=== PATIENT | male | born 1960 | race Caucasian/White ===

== ENCOUNTER 2020-08-14 01:01 | Inpatient (IN) | payer OTHER ==
--- OUTSIDE RECORDS SUMMARY | 2020-08-14 01:05 | XMS REPORT | Continuity of Care Document ---
:1960 Author Organization [facility] t Address [address] [place] [address] Care Team Providers Name Role Phone Doctor Unassigned, Name Attending Clinician Unavailable Craig RN Attending Clinician Problems This patient has no known problems. Allergies, Adverse Reactions, Alerts This patient has no known allergies or adverse reactions. Medications This patient has no known medications. Procedures This patient has no known procedures. Encounters Start End Encounter Admission Attending Care Care Encounter Source Date/Time Date/Time Type Type Clinicians Facility Department ID 2019-07-17 2019-07-17 Orders Doctor REYNOSO [id number] 00:00:00 00:00:00 Only UnassignedKAMAR [id number] [place] [facility] [id number] 2019-07-06 2019-07-06 Transition Berta Srinivasan [id number] 00:00:00 00:00:00 of Care Shivani Gonzalez [id number] [place] [id number] Results This patient has no known results.
[2020-08-14 02:13] VITALS: BMI 36.0
[2020-08-14] MEDS ORDERED: NITROGLYCERIN 0.4 MG/TAB SL PRN (02:26)
[2020-08-14] MEDS ORDERED: ACETAMINOPHEN 500 MG TAB PO PRN (02:26)
[2020-08-14] MEDS ORDERED: ALBUTEROL INHALER 60 PUFF/8 GM IH PRN (02:26)
[2020-08-14] MEDS ORDERED: ONDANSETRON 4 MG/2 ML VIAL IV PRN (02:26)
--- NOTE | 2020-08-14 02:38 | P.HP ---
Certification for Inpatient Patient admitted to: Inpatient With expected LOS: >2 Midnights Patient will require the following post-hospital care: None Practitioner: I am a practitioner with admitting privileges, knowledge of patient current condition, hospital course, and medical plan of care. Services: Services provided to patient in accordance with Admission requirements found in Title 42 Section 412.3 of the Code of Federal Regulations <Grayson Wang - Last Filed: 08/14/20 02:33> Patient History Date of Service: 08/14/20 Primary Care Provider: Dr. Lowery Reason for admission: NSTEMI History of Present Illness: 60-year-old male with history of CHF, COPD, hypertension, hyperlipidemia, CAD with stent placement, gout was at home resting in bed when he began having significant chest pain radiating to his left arm accompanied by rapid heart rate and shortness of breath. Patient reports that shortness of breath had been ongoing throughout the course the day prior to his episode of chest pain and palpitations. Patient usually takes nitro at home as needed for angina but was in such distress he is unable to get his bottle of nitro open and then called EMS. Upon arrival EMS stated that patient's heart rate was around 180, they gave him 25 mg of Cardizem IV. Patient was transferred to [facility] emergency department for evaluation, upon arrival to [facility] patient was in sinus rhythm with a rate of around 70. Patient's chest pain resolved, patient was then evaluated in the emergency department and found to have elevated troponin at 0.172, elevated BNP at 4177. Creatinine mildly elevated at 1.85, GFR 40, BUN 31. D-dimer also mildly elevated at 773.6. The patient's el evated troponin level and recent history of chest pain with shortness of breath he was started on a heparin drip and transferred to our facility for further evaluation and management. When I saw the patient in the treatment room he was awake, alert, oriented x3. Patient reports that he is no longer having chest pain at this time. Patient's last echocardiogram at our facility in 2017 showed ejection fraction between 40 and 45%. Patient reports that in September of last year. He was in [place] and had a myocardial infarction, at that time he had an echocardiogram, stress test, heart catheterization with stent placement but he does not have any of those results. Patient will be admitted for further evaluation and management. - Past Medical/Surgical History Has patient received pneumonia vaccine in the past: No Diabetic: No -: Heart failure reduced ejection fraction -: gout -: Coronary artery disease status post stent -: Pneumonia -: Chronic kidney disease -: arrythmia? -: Cardiac catheterization with stent placement Psychosocial/ Personal History: Patient lives at home with his friend and is unemployed on disability - Family History Father -: Heart disease - Social History Smoking Status: Never smoker Alcohol use: No CD- Drugs: No Caffeine use: Yes Place of Residence: Home <Grayson Wang - Last Filed: 08/14/20 02:33> Date of Service: 08/14/20 <Robinson Duran - Last Filed: 08/14/20 11:19> Allergies No Known Allergies Allergy (Verified 08/14/20 02:12) Home Medications: Allopurinol 100 mg PO DAILY 08/14/20 Amlodipine [Norvasc*] 10 mg PO DAILY 08/14/20 Aspirin Chewable [Aspirin Chewable*] 81 mg PO DAILY 08/14/20 Atorvastatin Calcium [Lipitor] 40 mg PO BEDTIME 08/14/20 Clopidogrel Bisulfate [Plavix*] 75 mg PO DAILY 08/14/20 Lisinopril [Zestril] 20 mg PO DAILY 08/14/20 Metoprolol Tartrate [Lopressor] 100 mg PO DAILY 08/14/20 Nitroglycerin [Nitrostat*] 0.4 mg SL PRN 08/14/20 Review of Systems 10-point ROS is otherwise unremarkable Respiratory: Shortness of Breath Cardiovascular: Chest Pain, Palpitations <Grayson Wang - Last Filed: 08/14/20 02:33> Physical Examination - Vital Signs Temperature: 98.1 F Blood Pressure: 190/92 Pulse: 62 Respirations: 18 Pulse Ox (%): 96 - Physical Exam General: Alert, In no apparent distress HEENT: Atraumatic, PERRLA, Mucous membr. moist/pink Neck: Supple, 2+ carotid pulse no bruit, No LAD Respiratory: Clear to auscultation bilaterally, Normal air movement Cardiovascular: Regular rate/rhythm, Normal S1 S2 Gastrointestinal: Normal bowel sounds, No tenderness Musculoskeletal: No tenderness Integumentary: No rashes Neurological: Normal speech, Normal strength at 5/5 x4 extr, Normal tone, Normal affect <Grayson Wang - Last Filed: 08/14/20 02:33> - Studies Laboratory Data (last 24 hrs) 08/14/20 07:47: APTT 43.5 H 08/14/20 07:47: Troponin I 0.47 H 08/14/20 03:11: PT 11.9, INR 1.01, APTT 71.6 H 08/14/20 03:11: Sodium 142, Potassium 4.3, BUN 30 H, Creatinine 1.77 H, Glucose 109 H, Magnesium 1.6 L, Troponin I 0.53 H*, Triglycerides 192 H, Cholesterol 143, HDL Cholesterol 36 L, Cholesterol/HDL Ratio 3.97 08/14/20 03:11: WBC 9.3, Hgb 12.4 L, Hct 37.1 L, Plt Count 163 08/14/20 02:44: PT Cancelled, INR Cancelled 08/14/20 02:30: Troponin I Cancelled <Robinson Duran - Last Filed: 08/14/20 11:19> Assessment and Plan - Plan Assessment NSTEMI, history of CAD S/P multiple stents Chronic heart failure reduced ejection fraction Hypertension Hyperlipidemia Gout Plan NSTEMI, history of CAD S/P multiple stents: Continue with heparin drip initiated at transferring facility. Cardiology consult in place. Monitor on telemetry. Trend troponins. NPO at this time for possible inpatient intervention. Appreciate further input from cardiology. Chronic heart failure reduced ejection fraction: Last echocardiogram in 2017 showed ejection fraction of 40-45%. Have ordered echocardiogram for this admission. Obtain and continue home medications. Hypertension: Home medications have been continued. Hyperlipidemia: Home medications have been continued. Will obtain lipid panel with morning labs. Gout: Home medications have been continued. Discharge Plan: Home Plan to discharge in: 24 Hours - Advance Directives Does patient have a Living Will: No Does patient have a Durable POA for Healthcare: No - Code Status/Comfort Care Code Status Assessed: Yes (Patient is full code) Critical Care: No Time Spent Managing Pts Care (In Minutes): 55 <Grayson Wang - Last Filed: 08/14/20 02:33> Physician Review Additional Text: Plan of care discussed with Grayson Wang, and I agree with the management plan as noted above. In addition, patient continues with some shortness of breath this morning on 3 L nasal cannula. Briefly discussed with Cardiology and will treat with IV Lasix 40 mg daily He is to go for cardiac catheterization this morning <Robinson Duran - Last Filed: 08/14/20 11:19>
[2020-08-14] MEDS ORDERED: HEPARIN/D5W 25,000 UNIT/500 ML BAG IV SCH (03:00)
[2020-08-14] MEDS ORDERED: METOPROLOL TARTRATE 5 MG/5 ML INJ IV STA ×2 (03:18→19:45)
[2020-08-14 03:33] LABS: Absolute Lymphocytes (CBC) 1.6 K/uL (0.7-4.9); Basophils % 0.6 % (0-1.3); Hematocrit 37.1 % (39.6-49.0); Lymphocytes % 16.7 % (15.3-44.8); MPV 9.8 fL (7.6-11.3)
[2020-08-14 03:40] LABS: Urine Appearance CLEAR; Urine Bilirubin NEGATIVE (NEG); Urine Blood NEGATIVE (NEG); Urine Color YELLOW; Urine Glucose NEGATIVE (NEG); Urine Protein 2+ (NEG); Urine Specific Gravity 1.015 (1.005-1.030); Urine Urobilinogen 0.2 mg/dL (0.2-1.0); Urine pH 5.5 (5.0-7.0)
[2020-08-14 03:42] LABS: Urine Microscopic Reflex ORDER UMIC
[2020-08-14 03:43] LABS: Protime INR 1.01
[2020-08-14] MEDS: MORPHINE 2 MG/ML SYR IV PRN ×2 (04:02→19:38)
[2020-08-14 04:06] LABS: Magnesium 1.6 mg/dL (1.8-2.4); Potassium 4.3 mmol/L (3.5-5.1); Thyroid Stimulating Hormone 2.18 uIU/mL (0.360-3.740)
[2020-08-14 04:07] LABS: Troponin I 0.53 ng/mL (0.0-0.045)
[2020-08-14 04:24] LABS: Urine Bacteria <20 /HPF (NONE SEEN); Urine Culture Reflex Order NOT NEEDED; Urine RBC NONE SEEN /HPF (NONE SEEN); Urine Urothelial Cells <5 /HPF (NONE SEEN)
[2020-08-14] MEDS ORDERED: HYDRALAZINE HCL 20 MG/ML VIAL IV PRN (05:07)
[2020-08-14] MEDS ORDERED: MAGNESIUM SULFATE 1 gm IVPB 1 GM/100 ML BAG IV ONE (08:00)
[2020-08-14] MEDS: lisinopriL 20 MG TAB PO SCH (08:11)
[2020-08-14] MEDS: ASPIRIN EC 81 MG TAB PO SCH (08:11)
[2020-08-14] MEDS: allopurinoL 100 MG TAB PO SCH (08:11)
[2020-08-14] MEDS: AMLODIPINE 10 MG TAB PO SCH (08:11)
[2020-08-14] MEDS: CLOPIDOGREL 75 MG TABLET PO SCH (08:48)
[2020-08-14] MEDS: FUROSEMIDE 40 MG/4 ML VIAL IV SCH (08:48)
[2020-08-14] MEDS ORDERED: INFLUENZA VACCINE (for 3y+) 0.5 ML DOSE IMVAC ONE (09:00)
[2020-08-14] MEDS ORDERED: ACETYLCYST 20% 800 MG/4 ML VIAL PO ONE (09:25)
[2020-08-14] MEDS ORDERED: NA CHLORIDE 0.9% 500 ML ONE (12:33)
[2020-08-14] MEDS ORDERED: HEPA 1000U/500MLS 2,000 UNIT/1,000 ML BAG IV ONE (13:02)
[2020-08-14] MEDS ORDERED: FENTANYL CITR 100 MCG/2 ML ONE ×2 (13:20→14:47)
[2020-08-14] MEDS ORDERED: LIDOCAINE 1% 20 ML MDV ONE (13:20)
[2020-08-14] MEDS ORDERED: ATROPINE SULF 1 MG/10 ML SYR IV ONE (13:20)
[2020-08-14] MEDS ORDERED: MIDAZOLAM HCL 2 MG/2 ML INJ ONE (13:20)
[2020-08-14] MEDS ORDERED: HEPARIN 10,000 UNIT/10 ML VIAL IV ONE (14:13)
[2020-08-14] MEDS ORDERED: NALOXONE 0.4 MG/ML VIAL ONE (14:21)
[2020-08-14] MEDS ORDERED: FLUMAZENIL 0.1 MG/ML (5 mL VIAL) IV ONE (14:21)
[2020-08-14] MEDS ORDERED: HEPA 1000U/500MLS 1,000 UNIT/500 ML BAG IV ONE (14:26)
[2020-08-14] MEDS ORDERED: HEPARIN 5000 UNIT/ML 1 ML VIAL ONE (14:31)
[2020-08-14] MEDS ORDERED: MORPHINE 4 MG/ML SYR ONE (14:39)
[2020-08-14] MEDS ORDERED: NITROGLYCERIN 0.4 MG/TAB SL ONE (14:41)
[2020-08-14] MEDS ORDERED: CLOPIDOGREL 75 MG TABLET ONE (15:00)
[2020-08-14] MEDS ORDERED: NA CHLORIDE 0.9% 1,000 ML IV SCH (18:00)
[2020-08-14] MEDS ORDERED: ADENOSINE 6 MG/ 2ML VIAL IV ONE ×2 (19:45→20:02)
[2020-08-14] MEDS ORDERED: METOPROLOL TARTRATE 5 MG/5 ML INJ IV ONE ×3 (20:00→23:45)
[2020-08-14] MEDS ORDERED: NA CHLORIDE 0.9% 250 ML ONE (20:01)
[2020-08-14] MEDS: ATORVASTATIN 40 MG TAB PO SCH (21:21)
[2020-08-14] MEDS ORDERED: ATORVASTATIN 20 MG TAB ONE (21:22)
[2020-08-14] MEDS: METOPROLOL TARTRATE 5 MG/5 ML INJ IV PRN ×3 (23:24→23:38)
[2020-08-14] MEDS ORDERED: MORPHINE 2 MG/ML SYR IV ONE (23:28)
[2020-08-14] MEDS ORDERED: MORPHINE 2 MG/ML SYR ONE (23:38)
[2020-08-14] MEDS ORDERED: ONDANSETRON 4 MG/2 ML VIAL ONE (23:42)
[2020-08-14] MEDS ORDERED: METOPROLOL TAR 50 MG TAB PO SCH (23:50)
[2020-08-15] MEDS ORDERED: METOPROLOL TAR 50 MG TAB ONE ×3 (00:04→20:36)
[2020-08-15] MEDS ORDERED: AMIODARONE HCL 150 MG in D5W 100 ML IV STA (00:51)
[2020-08-15] MEDS ORDERED: HYDRALAZINE HCL 20 MG/ML VIAL ONE (01:00)
[2020-08-15] MEDS ORDERED: AMIODARONE HCL 900 MG in Dextrose 5%-Water 482 ML IV SCH (01:00)
[2020-08-15] MEDS ORDERED: AMIODARONE HCL 150 MG/3 ML INJ IV ONE ×3 (01:10→01:38)
[2020-08-15] MEDS ORDERED: NA CHLORIDE 0.9% 0 ML IV ONE (01:10)
[2020-08-15] MEDS ORDERED: D5W 100 ML IV ONE (01:12)
--- NOTE | 2020-08-15 02:19 | P.PN ---
Date of Service: 08/15/20 Rapid response was called this evening, patient was tachycardic with a rate around 170, hypertensive with blood pressure of around 220/110. Rhythm was narrow complex and regular, patient was complaining of chest pain at the time. Called cardiology recommended 12 of adenosine IV. Patient was given adenosine and converted to normal sinus rhythm with a rate around the ED. Patient was admitted to the intensive care unit for monitoring throughout the night. Patient is reported to have had stenting of the LAD during the day shift. Later in the evening I was called again, patient's heart rate was around 130-135, blood pressure was again elevated and he is experiencing chest pain. Obtained EKG which showed what appeared to be 2-1 atrial flutter. Patient was given metoprolol 5 mg IV x3 which did not control the rate or the blood pressure. Called cardiology again who recommended amiodarone loading dose followed by continuous infusion. Amiodarone was initiated, patient soon after converted to sinus rhythm again with a rate of around 70, blood pressure normalized. Will continue to monitor patient throughout the evening.
[2020-08-15] MEDS ORDERED: NACHLORIDE 0.45% 1,000 ML IV ONE (02:42)
[2020-08-15 04:18] LABS: Absolute Lymphocytes (CBC) 1.1 K/uL (0.7-4.9); Basophils % 0.7 % (0-1.3); Hematocrit 37.3 % (39.6-49.0); Lymphocytes % 9.6 % (15.3-44.8); MPV 10.3 fL (7.6-11.3); RBC Red Blood Cell Count 4.07 M/uL (4.33-5.43)
[2020-08-15 04:33] LABS: Albumin 3.3 g/dL (3.4-5.0); Bilirubin Total 0.4 mg/dL (0.2-1.0); Magnesium 1.8 mg/dL (1.8-2.4); Potassium 4.3 mmol/L (3.5-5.1)
[2020-08-15] MEDS ORDERED: MAGNESIUM SULFATE 1 gm IVPB 1 GM/100 ML BAG IV ONE ×2 (05:35→06:00)
[2020-08-15] MEDS ORDERED: AMLODIPINE 10 MG TAB ONE (08:31)
[2020-08-15] MEDS ORDERED: CLOPIDOGREL 75 MG TABLET ONE (08:31)
[2020-08-15] MEDS ORDERED: ASPIRIN EC 81 MG TAB PO ONE (08:31)
[2020-08-15] MEDS ORDERED: FUROSEMIDE 40 MG/4 ML VIAL ONE (08:32)
[2020-08-15] MEDS ORDERED: lisinopriL 20 MG TAB ONE (08:32)
[2020-08-15] MEDS: CLOPIDOGREL 75 MG TABLET PO SCH (08:47)
[2020-08-15] MEDS: ASPIRIN EC 81 MG TAB PO SCH (08:47)
[2020-08-15] MEDS: AMLODIPINE 10 MG TAB PO SCH (08:47)
[2020-08-15] MEDS: allopurinoL 100 MG TAB PO SCH (08:47)
[2020-08-15] MEDS: METOPROLOL TAR 50 MG TAB PO SCH ×2 (08:48→21:00)
[2020-08-15] MEDS: lisinopriL 20 MG TAB PO SCH (08:48)
[2020-08-15] MEDS: FUROSEMIDE 40 MG/4 ML VIAL IV SCH (08:49)
--- NOTE | 2020-08-15 10:39 | ECHO ---
HEIGHT: 5 ft 9 in WEIGHT: 243 lb 12.8 oz DATE OF STUDY: 08/14/[address]: Grayson Wang NP 2-DIMENSIONAL: YES M.MODE: YES DOPPLER: YES COLOR FLOW: YES TDS: YES PORTABLE: NO DEFINITY: NO BUBBLE STUDY: NO DIAGNOSIS: NSTEMI CARDIAC HISTORY: CATHERIZATION: YES SURGERY: NO PROSTHETIC VALVE: NO PACEMAKER: NO MEASUREMENTS (cm) DIASTOLIC (NORMALS) SYSTOLIC (NORMALS) IVSd 1.2 (0.6-1.2) LA Diam 4.3 (1.9-4.0) LVEF 58% LVIDd 5.0 (3.5-5.7) LVIDs 3.5 (2.0-3.5) %FS 30% LVPWd 1.3 (0.6-1.2) Ao Diam 3.2 (2.0-3.7) 2 DIMENSIONAL ASSESSMENT: RIGHT ATRIUM: NORMAL LEFT ATRIUM: ENLARGED RIGHT VENTRICLE: NORMAL LEFT VENTRICLE: NORMAL TRICUSPID VALVE: NORMAL MITRAL VALVE: NORMAL PULMONIC VALVE: NORMAL AORTIC VALVE: NORMAL PERICARDIAL EFFUSION: NONE AORTIC ROOT: NORMAL LEFT VENTRICULAR WALL MOTION: NORMAL DOPPLER/COLOR FLOW: NORMAL COMMENTS: NORMAL LEFT VENTRICULAR EJECTION FRACTION 55-60% WITH NORMAL WALL MOTION. GRADE I DIASTOLIC DYSFUNCTION. TECHNOLOGIST: Dominik ROWE
--- NOTE | 2020-08-15 12:10 | OP ---
Date of Procedure: 08/14/2020 Surgeon: LYUBOV ACUÑA Procedures Performed: 1.Selective coronary angiogram. 2.Coronary angioplasty of mid LAD, ISR, 95% stenosis using 4.0 x 50 mm NC balloon. 3.Balloon angioplasty of severe ostial D1 stenosis, 95% stenosis using 2.75 x 50 mm NC balloon and t hen performed bilateral kissing inflation through the D1 to LAD with the same balloons. Access: Right femoral artery 6-Irish closed with 6-Irish Angio-Seal. Indication: Non-ST elevation myocardial infarction. Description Of Procedure: After the risks, benefits, and alternatives were explained, the patient ag kirti to procedure and signed informed consent and then we used fentanyl and Versed in incremental dos es to achieve adequate amounts of moderate sedation. Then, we accessed the right femoral artery usin g ultrasound guidance and fluoroscopy and placed a 6-Irish Callao sheath. Subsequently, we took a 6-Irish JL4 catheter, engaged left main and then a 6-Irish JR4 catheter, engaged the right coronar y artery, took standard views and then proceeded to the intervention part. Intervention Details: We gave systemic heparin to assure ACT level above 250 and then we took an EBU 4 engaged left main and then took a short run-through wire across the LAD stenosis and Choice floppy wire into the diagonal branch and we took 4.0 x 50 mm NC balloon dilated the area of stenosis of the mid LAD stent and that closed off completely the diagonal branch. Then, we took a 2.75 balloon thro ugh the diagonal branch and opened it up and then did a bilateral kissing inflation for the diagonal LAD simultaneously and had good results. LEI-3 flow on both vessels. Findings: 1.Left main, 20% to 30% stenosis diffusely. 2.LAD, proximal and mid LAD, severe in-stent restenosis 95%, status post successful balloon angiopla sty as above. 3.Severe ostial D1 disease status post successful balloon angioplasty as above. 4.Left circumflex is moderate size with mild luminal irregularities. 5.RCA mid has 50%. Conclusions: Severe LAD/D1 disease status post bilateral balloon angioplasty with bilateral kissing inflation with LEI-3 flow. Recommendations: 1.Aggressive management of coronary artery disease medically with dual anti-platelet therapy and hig h-dose statin. 2.FFR to RCA proximal LAD at a later time. SR/MODL Voice ID: [id number] Report ID: [id number]
[2020-08-15] MEDS ORDERED: NA CHLORIDE 0.9% 1,000 ML ONE (12:14)
[2020-08-15] MEDS: NA CHLORIDE 0.9% 1,000 ML IV SCH (12:45)
[2020-08-15] MEDS: ACETYLCYST 20% 800 MG/4 ML VIAL PO SCH ×2 (12:45→21:00)
--- NOTE | 2020-08-15 13:02 | P.CNS ---
Date of Consult: 08/15/20 Reason for Consult: AJAY Chief Complaint: NSTEMI History of Present Illness: HPI A 60 Y/o man with PMhx of CKD III baseline Cr 1.7 from previous labs from 2017 ,CAD S/P PCI, CHF on lasix , COPD, hypertension on lisniopril , hyperlipidemia, pt presented with chest pain and palpitation in er Cr 1.7, pt had cardiac catheterization yesterday cr now 1.9 , pt was on lisinopril and lasix no NSAID exposure, pt dendied , nausea, vomiting, diarrhea or constipation Physical exam general: AAOX3, NAD Neck; Supple, No elevated JVD hear: RRR, normal S1,2 no murmur or rub Chest: CTAB, no rlaes or wheezes Abdomen: Soft , Nt Extremities No edema or ulcer A/p AJAY on CKD III possibly due to contrast associated nephropathy will order US will start iVF and dc lasix and lisinopril renal dose meds CAD S/P cardiac cath Arrythemia heart rate controlled now on AMidoarone CHF euvolmeic now will dc lasix HTN BP controlled now will hold lisinopril Allergies No Known Allergies Allergy (Verified 08/14/20 02:12) Home Medications: Allopurinol 100 mg PO DAILY 08/14/20 Amlodipine [Norvasc*] 10 mg PO DAILY 08/14/20 Aspirin Chewable [Aspirin Chewable*] 81 mg PO DAILY 08/14/20 Atorvastatin Calcium [Lipitor] 40 mg PO BEDTIME 08/14/20 Clopidogrel Bisulfate [Plavix*] 75 mg PO DAILY 08/14/20 Lisinopril [Zestril] 20 mg PO DAILY 08/14/20 Metoprolol Tartrate [Lopressor] 100 mg PO DAILY 08/14/20 Nitroglycerin [Nitrostat*] 0.4 mg SL PRN 08/14/20 - Past Medical/Surgical History Diabetic: No -: Heart failure reduced ejection fraction -: gout -: Coronary artery disease status post stent -: Pneumonia -: Chronic kidney disease -: arrythmia? -: Cardiac catheterization with stent placement Psychosocial/ Personal History: Patient lives at home with his friend and is unemployed on disability - Family History Father Medical History: Heart disease - Social History Smoking Status: Unknown if ever smoked Alcohol use: No CD- Drugs: No Caffeine use: Yes Place of Residence: Home Physical Examination Temp Pulse Resp BP Pulse Ox 98.2 F 78 20 135/77 95 08/15/20 08:00 08/15/20 09:00 08/15/20 09:00 08/15/20 09:00 08/15/20 09:00 Laboratory Data (last 24 hrs) 08/15/20 03:46: Sodium 141, Potassium 4.3, BUN 29 H, Creatinine 1.94 H, Glucose 135 H, Magnesium 1.8, Total Bilirubin 0.4, AST 59 H, ALT 27, Alkaline Phosphatase 117 08/15/20 03:46: WBC 11.7 H D, Hgb 12.5 L, Hct 37.3 L, Plt Count 194 08/14/20 15:59: Troponin I 0.29 H
--- NOTE | 2020-08-15 18:48 | P.PN ---
Subjective Date of Service: 08/15/20 Primary Care Provider: Dr. Lowery Chief Complaint: NSTEMI Subjective: Other (Overnight with SVT and 2:1 Aflutter, required adenosine and then started on amiodarone drip, respectively Patient feeling much better this morning, was able to get rest, breathing more comfortably) Physical Examination - Vital Signs Temperature: 98.2 F Blood Pressure: 144/103 Pulse: 70 Respirations: 20 Pulse Ox (%): 100 - Physical Exam General: Alert, In no apparent distress, Oriented x3 Neck: JVD not distended Respiratory: Clear to auscultation bilaterally Cardiovascular: Regular rate/rhythm Gastrointestinal: Soft and benign, Non-distended, No tenderness Musculoskeletal: No erythema, No tenderness Integumentary: No rashes Neurological: Normal speech, Normal affect - Studies Laboratory Data (last 24 hrs) 08/15/20 03:46: Sodium 141, Potassium 4.3, BUN 29 H, Creatinine 1.94 H, Glucose 135 H, Magnesium 1.8, Total Bilirubin 0.4, AST 59 H, ALT 27, Alkaline Phosphatase 117 08/15/20 03:46: WBC 11.7 H D, Hgb 12.5 L, Hct 37.3 L, Plt Count 194 Assessment & Plan Physician Review Additional Text: NSTEMI, history of CAD S/P multiple stents: SVT, A flutter Status post cardiac catheterization, required stenting Continue amiodarone drip Cardiology consulted, appreciate assistance Continue monitoring on telemetry Continue aspirin and Plavix AJAY on CKD 3 -worsened overnight, likely due to contrast associated nephropathy -patient reports not having a nephrology is, will consult nephrology -Dc nephrotoxic medications Chronic heart failure reduced ejection fraction: Last echocardiogram in 2017 showed ejection fraction of 40-45%. Have ordered echocardiogram for this admission. Obtain and continue home medications. Hypertension: Home medications have been continued. Hyperlipidemia: Home medications have been continued. Gout: Home medications have been continued. Dispo: anticipate dc home in 24-48hrs Time Spent Managing Pts Care (In Minutes): 35
[2020-08-15] MEDS ORDERED: ENOXAPARIN 40 MG/0.4 ML SQ SCH (19:00)
[2020-08-15] MEDS ORDERED: ENOXAPARIN 40 MG/0.4 ML SQ ONE (19:48)
[2020-08-15 20:11] LABS: Urine Appearance CLEAR; Urine Bilirubin NEGATIVE (NEG); Urine Blood NEGATIVE (NEG); Urine Color YELLOW; Urine Glucose TRACE (NEG); Urine Protein 2+ (NEG); Urine Urobilinogen 0.2 mg/dL (0.2-1.0); Urine pH 5.5 (5.0-7.0)
[2020-08-15 20:12] LABS: Urine Microscopic Reflex ORDER UMIC
[2020-08-15 20:19] LABS: Urine Bacteria NONE SEEN /HPF (NONE SEEN); Urine Culture Reflex Order NOT NEEDED; Urine RBC <5 /HPF (NONE SEEN)
[2020-08-15] MEDS ORDERED: ATORVASTATIN 20 MG TAB ONE ×2 (20:36→21:44)
[2020-08-15] MEDS ORDERED: ACETYLCYST 6,000 MG/30 ML VIAL ONE (20:37)
[2020-08-15 20:38] LABS: Urine Protein/Creatinine Ratio 2.58 ratio (<0.15)
[2020-08-15] MEDS: ATORVASTATIN 40 MG TAB PO SCH (21:00)
[2020-08-16] MEDS: NA CHLORIDE 0.9% 1,000 ML IV SCH (01:22)
[2020-08-16] MEDS ORDERED: NA CHLORIDE 0.9% 1,000 ML ONE (01:24)
[2020-08-16 04:20] LABS: Absolute Lymphocytes (CBC) 1.3 K/uL (0.7-4.9); Hematocrit 38.9 % (39.6-49.0); Lymphocytes % 10.9 % (15.3-44.8); MPV 10.5 fL (7.6-11.3); RBC Red Blood Cell Count 4.29 M/uL (4.33-5.43)
[2020-08-16 04:35] LABS: Potassium 3.9 mmol/L (3.5-5.1)
[2020-08-16] MEDS ORDERED: POTASSIUM CL SA 10 MEQ TAB PO ONE ×2 (08:00→09:00)
[2020-08-16 08:38] VITALS: O2SAT 98
--- NOTE | 2020-08-16 08:44 | RAD REPORT ---
EXAM DESCRIPTION: US - Renal Ultrasound-Complete - 08/16/2020 2:29 am CLINICAL HISTORY: AJAY COMPARISON: No comparisons FINDINGS: The right kidney measures 10.6 x 5.0 x 4.6 cm. The left kidney measures 12.0 x 5.2 x 4.1 cm. Renal cortical thickness and echogenicity are normal. No hydronephrosis or suspicious renal mass. Bladder is only partially filled limiting assessment. Lobulated mass at the bladder base is present. This could only be partially evaluated due to incomplete filling of the bladder. This is typically en larged prostate gland projecting into the bladder base. A bladder origin mass is possible as well. No bladder calculus in the lumen identifiable. IMPRESSION: No hydronephrosis or suspicious renal mass. Lobulated mass of the bladder base is present only partially assessed. This is typically prostate hyp ertrophy projecting into the bladder base. A prostate origin mass or bladder base mass cannot be excl uded given the limited visualization.
[2020-08-16] MEDS: ASPIRIN EC 81 MG TAB PO SCH (08:54)
[2020-08-16] MEDS: CLOPIDOGREL 75 MG TABLET PO SCH (08:55)
[2020-08-16] MEDS: METOPROLOL TAR 50 MG TAB PO SCH (08:55)
[2020-08-16] MEDS: AMLODIPINE 10 MG TAB PO SCH (08:55)
[2020-08-16] MEDS: FUROSEMIDE 40 MG/4 ML VIAL IV SCH ×2 (08:56→09:00)
[2020-08-16] MEDS ORDERED: CLOPIDOGREL 75 MG TABLET ONE (08:58)
[2020-08-16] MEDS ORDERED: METOPROLOL TAR 50 MG TAB ONE (08:58)
[2020-08-16] MEDS ORDERED: ASPIRIN EC 81 MG TAB PO ONE (08:59)
[2020-08-16] MEDS ORDERED: AMLODIPINE 10 MG TAB ONE (08:59)
[2020-08-16] MEDS ORDERED: AMIODARONE HCL 200 MG TAB ONE (08:59)
[2020-08-16] MEDS ORDERED: FUROSEMIDE 40 MG/4 ML VIAL ONE (09:00)
[2020-08-16] MEDS ORDERED: ACETYLCYST 6,000 MG/30 ML VIAL ONE (09:00)
[2020-08-16] MEDS ORDERED: AMIODARONE HCL 200 MG TAB PO SCH ×2 (09:00→21:00)
[2020-08-16 09:04] LABS: Magnesium 1.7 mg/dL (1.8-2.4)
[2020-08-16] MEDS: allopurinoL 100 MG TAB PO SCH (10:02)
[2020-08-16] MEDS: ACETYLCYST 20% 800 MG/4 ML VIAL PO SCH (10:03)
--- NOTE | 2020-08-16 12:52 | P.DS ---
Admission Date: 08/14/20 Discharge Date: 08/16/20 Primary Care Provider: Dr. Lowery Disposition: ROUTINE DISCHARGE Discharge Condition: GOOD Reason for Admission: NSTEMI Consultations: Cardiology - Dr. Vazquez Neprology - Dr. Bobby Procedures: TTE (08/14): normal LVEF: 55-60%, normal wall motion. Grade 1 diastolic dysfunction. enlarged LA Cardiac catheterization (08/14/20): Left main, 20-30% stenosis diffusely. LAD, proximal and mid LAD, severe InStent restenoses 95%: Status post successful balloon angioplasty Severe ostial D 1 disease status post successful balloon angioplasty Left circumflex is moderate size with mild luminal irregularities RCA mid has 50% (severe LAD-T1 disease status post bilateral balloon angioplasty with bilateral kissing inflation with LEI-3 flow.) Recommendations FFR to RCA proximal LAD at a later time Renal U/S (08/15): No hydronephrosis or suspicious renal mass. Lobulated mass of the bladder base is present only partially assessed. This is typically prostate hypertrophy projecting into the bladder base. A prostate origin mass or bladder base mass cannot be excluded given the limited visualization. Problem List NSTEMI, history of CAD S/P multiple stents SVT, A-flutter AJAY on CKD 3 Chronic HFpEF Hypertension Hyperlipidemia Gout Brief History of Present Illness: 60yo M; PMH: chronic D-CHF (HFpEF), COPD, HTN, HLD, CAD with stent placement, gout who presented to ED with chest pain radiating to left arm accompaned by rapid heart rate and SOB. In [facility] ED, found to have HR 180, troponin 0.172, BNP: 4177, Cr: 1.85. He was transferred to our hospital for further management. Hospital Course: On arrival here, patient's troponin was 0.53, found to have NSTEMI, taken to quality control lab technician and underwent ballon angioplasty/stenting. Overnight after cardiac cath, patient was in SVT and resolved with adenosine. A few hours later patient was noted to be in 2:1 aflutter, resolved after a few hours on amiodarone drip. He remained in normal sinus rhythm was reporting significant improvement in symptoms, but some mild FORD persisted. He was transitioned to PO amiodarone (200mg BID) and discharged home. He also had a mild AJAY after cardiac cath which was likely related to mild contrast induced nephropathy - improved with gently IVF hydration. A renal U/S was obtained with above results. Patient did not report any obstructive symptoms and "lobulated mass of bladder base" / possible prostate hypertrophy should be worked up further as an outpatient. His lisinopril was discontinued on discharge due to AJAY on CKD, can likely be restarted once he returns to baseline. Vital Signs/Physical Exam: Temp Pulse Resp BP Pulse Ox 98.5 F 84 15 171/100 H 95 08/16/20 06:00 08/16/20 08:55 08/16/20 06:00 08/16/20 08:55 08/16/20 06:00 General: Alert, In no apparent distress HEENT: Mucous membr. moist/pink Neck: JVD not distended, No LAD Respiratory: Clear to auscultation bilaterally, Normal air movement Cardiovascular: No edema, Regular rate/rhythm, Normal S1 S2 Gastrointestinal: Soft and benign, Non-distended, No tenderness Musculoskeletal: No tenderness Integumentary: No rashes Neurological: Normal speech, Normal affect Laboratory Data at Discharge: WBC 11.6 K/uL (4.3-10.9) H 08/16/20 03:38 Hgb 13.1 g/dL (13.6-17.9) L 08/16/20 03:38 Hct 38.9 % (39.6-49.0) L 08/16/20 03:38 Plt Count 194 K/uL (152-406) 08/16/20 03:38 PT 11.9 SECONDS (9.5-12.5) 08/14/20 03:11 INR 1.01 08/14/20 03:11 APTT 43.6 SECONDS (24.3-36.9) H 08/14/20 11:50 Sodium 140 mmol/L (136-145) 08/16/20 03:38 Potassium 3.9 mmol/L (3.5-5.1) 08/16/20 03:38 BUN 26 mg/dL (7-18) H 08/16/20 03:38 Creatinine 1.84 mg/dL (0.55-1.3) H 08/16/20 03:38 Glucose 136 mg/dL (74-106) H 08/16/20 03:38 Magnesium 1.7 mg/dL (1.8-2.4) L 08/16/20 03:38 Total Bilirubin 0.4 mg/dL (0.2-1.0) 08/15/20 03:46 AST 59 U/L (15-37) H 08/15/20 03:46 ALT 27 U/L (12-78) 08/15/20 03:46 Alkaline Phosphatase 117 U/L (45-117) 08/15/20 03:46 Troponin I 0.29 ng/mL (0.0-0.045) H 08/14/20 15:59 Triglycerides 192 mg/dL (<150) H 08/14/20 03:11 Cholesterol 143 mg/dL (<200) 08/14/20 03:11 HDL Cholesterol 36 mg/dL (40-60) L 08/14/20 03:11 Cholesterol/HDL Ratio 3.97 08/14/20 03:11 Home Medications: Allopurinol 100 mg PO DAILY 08/14/20 Amlodipine [Norvasc*] 10 mg PO DAILY 08/14/20 Aspirin Chewable [Aspirin Chewable*] 81 mg PO DAILY 08/14/20 Atorvastatin Calcium [Lipitor] 40 mg PO BEDTIME 08/14/20 Clopidogrel Bisulfate [Plavix*] 75 mg PO DAILY 08/14/20 Metoprolol Tartrate [Lopressor] 100 mg PO DAILY 08/14/20 Nitroglycerin [Nitrostat*] 0.4 mg SL PRN 08/14/20 Amiodarone HCl [Cordarone*] 200 mg PO BID 30 Days #60 tab 08/16/20 New Medications: Amiodarone HCl [Cordarone*] 200 mg PO BID 30 Days #60 tab Patient Discharge Instructions: Follow up with PCP within 3-5 days. Follow up with Cardiology in 2-3 weeks. Recommend taking less colchicine while on amiodarone Diet: AHA Activity: Ad missy Time spent managing pt's care (in minutes): 40
[2020-08-16 15:53] VITALS: TEMP 98.5
[2020-08-16 15:58] VITALS: BP 142/75
[2020-08-16] MEDS ORDERED: ENOXAPARIN 40 MG/0.4 ML SQ SCH (18:00)
--- NOTE | 2020-08-16 21:38 | PN ---
Date of Progress Note: 08/16/2020 Chief Complaint: Elevated BUN and creatinine. Acute kidney injury. Subjective: The patient is admitted to the hospital because of acute non-ST elevation myocardial inf arction. He has underlying chronic kidney disease stage 3. Baseline creatinine 1.7. Previous lab w ork from 2017 show creatinine was 1.7. The patient has history of coronary artery disease and status post PCI, congestive heart failure on Lasix for volume control and hypertension has been controlled with lisinopril. The patient has underlying hyperlipidemia and COPD. The patient presented to the [facility] with chest pain and palpitation. He had cardiac catheterization done and creatinine level wa s up to 1.9. The patient is Mucomyst to prevent contrast-induced nephropathy. He denies nonsteroida l anti-inflammatories. Also, denies nausea, vomiting, diarrhea, constipation. Review of Systems: Denies PND, orthopnea. Physical Examination: Lungs: Diminished breath sounds at bases. Heart: S1, S2. Abdomen: Soft, benign. Extremities: No edema. Impression And Plan: 1.Iwoky-av-tijakqd kidney disease, possibly due to associated nephropathy and hypertensive kidney di sease. The patient will have ultrasound. The patient will start IV fluids and Mucomyst to prevent c ontrast-induced nephropathy, Lasix and Venofer currently is on hold. 2.Coronary artery disease. The patient underwent cardiac catheterization. Further recommendation from the room worker. Rate controlled. Currently, the pat ient is on amiodarone. MELODIE/KARSTEN Voice ID: [id number] Report ID: [id number]
--- NOTE | 2020-08-18 10:07 | CON ---
Date of Consultation: 08/14/2020 Reason For Consultation: [id number] [place] and atrial fibrillation, also congestive heart failure. History Of Present Illness: Mr. Pérez is a 60-year-old male, who has had a history of chronic systol ic congestive heart failure with ejection fraction of 45%. He has a history of hypertension, dyslipi demia, coronary artery disease status post PCI, came in with chest pain, atrial fibrillation, left ar m radiation, shortness of breath, PND, orthopnea, pedal edema. He does not have palpitations or sync ope. Denied any fever, chills, or cough. Past Medical History: As stated above. Allergies: NONE. Review of Systems: Negative. Social History: Negative. Family History: Noncontributory. Medications: At home include allopurinol, metoprolol, Norvasc, aspirin, Lipitor, Plavix, . Physical Examination: Vital Signs: Stable. Afebrile. General: He was in mild respiratory distress. HEENT: Negative. Neck: Supple. No bruit, lymphadenopathy, JVD, or thyromegaly. Chest: Some rales in both bases. Cardiac: Atrial fibrillation. Abdomen: Obese, benign. Extremities: 1+ edema. Diagnostic Studies: EKG showed atrial fibrillation. Troponin 0.53. Magnesium is 1.6, . Creatinine is 1.77. Impression And Plan: 1.Hmu-OS-dfozlfoxb myocardial infarction in the patient with history of coronary artery disease and stent. 2.Acute on chronic exacerbation of congestive heart failure, that is systolic. 3.Hypertension. 4.Renal insufficiency. 5.Dyslipidemia. 6.Hypomagnesemia. This need to be supplemented. I think patient needs to receive Mucomyst and we need to plan to do a heart catheterization on him to day to define his coronary anatomy. The case was discussed with him in detail and he agrees to proce ed. He understands the risk and the benefit. Dr. Vazquez will do a pace today. HAO/KARSTEN Voice ID: [id number] Report ID: [id number]
== END 2020-08-16 15:45 | disposition home or self-care (01) | DRG 251 ==
LOC: 2ND 01:01 → ERHOLD 20:19
PROVIDERS: ADMIT Hospitalist; ATTEND Hospitalist
PROC: 02703ZZ Dilation of Coronary Artery, One Artery, Percutaneous Approach (ICD-10-PCS; principal; 2020-08-14)
PROC: 4A023N7 Measurement of Cardiac Sampling and Pressure, Left Heart, Percutaneous Approach (ICD-10-PCS; 2020-08-14)
PROC: B2111ZZ Fluoroscopy of Multiple Coronary Arteries using Low Osmolar Contrast (ICD-10-PCS; 2020-08-14)
DX: I21.4 Non-ST elevation (NSTEMI) myocardial infarction (principal); I13.0 Hypertensive heart and chronic kidney disease with heart failure and stage 1 through stage 4 chronic kidney disease, or unspecified chronic kidney disease; I50.22 Chronic systolic (congestive) heart failure; I48.92 Unspecified atrial flutter; N17.9 Acute kidney failure, unspecified; I47.1 Supraventricular tachycardia; N18.30 Chronic kidney disease, stage 3 unspecified; J44.9 Chronic obstructive pulmonary disease, unspecified; M10.9 Gout, unspecified; E78.5 Hyperlipidemia, unspecified; I25.10 Atherosclerotic heart disease of native coronary artery without angina pectoris; I49.9 Cardiac arrhythmia, unspecified; E83.42 Hypomagnesemia; N14.1 Nephropathy induced by other drugs, medicaments and biological substances; T50.8X5A Adverse effect of diagnostic agents, initial encounter; Z95.5 Presence of coronary angioplasty implant and graft; Z56.0 Unemployment, unspecified; Z79.82 Long term (current) use of aspirin; Z79.899 Other long term (current) drug therapy; Z79.02 Long term (current) use of antithrombotics/antiplatelets
CPT/HCPCS: 36415; 76770; 80048; 80053; 80061; 81003; 81015; 82570; 83735; 84156; 84439; 84443; 84484; 85025; 85347; 85610; 85730; 92928; 93005; 93306; 93454; C1725; C1760; C1893; J0153; J0282; J0360; J1644; J1650; J1940; J2250; J2270; J2310; J2405; J3010; J3475; J7030; J7040; J7050; J7060